=== PATIENT | male | born 1995 | race Caucasian/White ===

== ENCOUNTER → 2016-07-24 | Outpatient (CLI) | payer OTHER ==
--- NOTE | 2016-07-24 16:53 | MR ---
EXAMINATION TYPE: MR knee LT wo con DATE OF EXAM: 07/24/2016 4:31 PM COMPARISON: NONE HISTORY: Left knee and are pain with locking for approx. 1 month. Left knee subluxation per order. TECHNIQUE: Multiplanar, multisequence imaging of the left knee is performed without IV contrast. FINDINGS: MEDIAL MENISCUS: Anterior and posterior horns are intact without tear. LATERAL MENISCUS: Anterior and posterior horns are intact without tear. CRUCIATE LIGAMENTS: The anterior and posterior cruciate ligaments are intact and unremarkable. COLLATERAL LIGAMENTS: The medial collateral ligament and lateral collateral ligament complex are inta ct. Increased fluid signal surrounds proximal fibers of medial collateral ligament. EXTENSOR MECHANISM: Visualized quadriceps and patellar tendons are intact. EFFUSION: There is a large suprapatellar joint effusion. POPLITEAL CYST: No popliteal/hamlin cyst. TRICOMPARTMENT SPACES: Tricompartment joint spaces are fairly well-maintained. No significant spurrin g is seen. CARTILAGE: Tricompartmental articular cartilage is maintained. There is no significant chondromalacia patella noted. BONE MARROW SIGNAL: There is prominent heterogeneous increased T2 signal consistent osseous contusion or bone marrow edema involving the distal lateral femoral condyle and the medial patellar pole most pronounced inferiorly. Findings are consistent with osseous contusion pattern related to lateral dobson llar dislocation. The medial retinaculum is felt intact. OTHER: No additional significant abnormality is appreciated. IMPRESSION: 1. Ossific contusion or bone marrow edema involving lateral distal femoral condyle and medial patella r pole is consistent with injury related to lateral patellar dislocation with spontaneous reduction. No visualized tear in the medial retinaculum is noted. 2. Large suprapatellar joint effusion is present. 3. Mild MCL sprain injury.
== END | disposition home or self-care (01) ==
LOC: RADMRIMAIN 15:53
PROVIDERS: ATTEND Family Medicine
DX: S83.412A Sprain of medial collateral ligament of left knee, initial encounter (principal)

== ENCOUNTER → 2018-04-29 | Outpatient (CLI) | payer OTHER ==
--- NOTE | 2018-04-29 08:00 | US ---
EXAMINATION TYPE: US abdomen complete DATE OF EXAM: 04/29/2018 COMPARISON: NONE CLINICAL HISTORY: R19.7 DIARRHEA,R10.13 ABD PAIN. Limited and difficult exam due to overlying bowel g as EXAM MEASUREMENTS: Liver Length: 16.7 cm Gallbladder Wall: 0.3 cm CBD: 0.4 cm Spleen: 11.3 cm Right Kidney: 11.1 x 4.0 x 4.9 cm Left Kidney: 12.0 x 5.3 x 4.9 cm Pancreas: Obscured by bowel gas small portion of the head of the pancreas visualized appears unremar kable. Liver: Heterogeneous Gallbladder: Multiple stones visualized Evidence for sonographic Faith's sign: No CBD: wnl as visualized Spleen: wnl Right Kidney: No hydronephrosis or masses seen Left Kidney: No hydronephrosis or masses seen Upper IVC: wnl Abd Aorta: wnl as visualized IMPRESSION: 1. Cholelithiasis.
== END ==
LOC: RADUSWWP 06:56
PROVIDERS: ATTEND Family Medicine
DX: K80.20 Calculus of gallbladder without cholecystitis without obstruction (principal)
CPT/HCPCS: 76700

== ENCOUNTER 2018-06-17 10:52 | Observation (INO) | payer BC, OTHER ==
[2018-06-14 13:15] VITALS: BMI 34.3
[~2018-06-17 10:52] MED LIST: HEPARIN SODIUM,PORCINE 5,000 UNIT/ML 1 ML VIAL SQ ONE; MORPHINE SULFATE 2 MG/ML SYRINGE IV PRN; ONDANSETRON 4 MG/2 ML VIAL IVP PRN; ceFAZolin IN SWFI 2 GM/20 ML SYRINGE IVP ONE
[2018-06-17] MEDS: LACTATED RINGERS 1,000 ML IV SCH (12:12)
[2018-06-17] MEDS ORDERED: LIDOCAINE 1% 20 ML VIAL (10MG/ML) FOR IV START INTRADERMA ONE (12:12)
--- NOTE | 2018-06-17 14:01 | P.HPADDEND ---
H&P Addendum H&P Addendum Date: 06/17/18 The patient during his recent office visit also described a lipoma in the left upper mid back. This is painful at times. Some enlargement. On exam this lipoma measures 2 x 1 cm. We will proceed with excision simultaneous to the gallbladder procedure.
[2018-06-17] MEDS ORDERED: LIDOCAINE 1% INJ 10MG/ML (20 ML MDV) ONE (14:21)
[2018-06-17] MEDS ORDERED: ROCURONIUM BROMIDE 10 MG/ML 10 ML VIAL IV ONE (14:21)
[2018-06-17] MEDS ORDERED: GLYCOPYRROLATE 0.2 MG/ML 2 ML VIAL ONE (14:21)
[2018-06-17] MEDS ORDERED: SUCCINYLCHOLINE CHLORIDE 100 MG/5 ML SYR IV ONE (14:21)
[2018-06-17] MEDS ORDERED: MIDAZOLAM 2 MG/2 ML VIAL ONE (14:21)
[2018-06-17] MEDS ORDERED: fentaNYL (PF) 50 MCG/ML 2 ML AMP ONE (14:21)
[2018-06-17] MEDS ORDERED: NEOSTIGMINE 1 MG/ML 10 ML VIAL ONE (14:21)
[2018-06-17] MEDS ORDERED: PROPOFOL 10 MG/ML 20 ML VIAL IV ONE (14:21)
[2018-06-17] MEDS ORDERED: BUPIVACAIN-EPI 0.25%-1:200,000 30 ML VIAL SQ ONE (14:45)
[2018-06-17] MEDS ORDERED: LACTATED RINGERS 1,000 ML IV ONE (15:41)
[2018-06-17] MEDS ORDERED: KETOROLAC 30 MG/ML 1 ML VIAL IVP ONE (16:32)
[2018-06-17] MEDS ORDERED: HYDROmorphone 1 MG/ML 1 ML SYRINGE IVP ONE ×5 (16:42→18:44)
[2018-06-17] MEDS ORDERED: HYDROcodone/APAP 5-325MG 1 EACH TAB PO PRN (16:42)
[2018-06-17] MEDS ORDERED: NALOXONE 0.4 MG/ML 1 ML VIAL IV PRN (16:42)
--- NOTE | 2018-06-17 16:46 | P.OP ---
Date of Procedure: 06/17/18 Procedure(s) Performed: PREOPERATIVE DIAGNOSIS: Chronic cholecystitis, left back lipoma POSTOPERATIVE DIAGNOSIS: Same PROCEDURE: Laparoscopic cholecystectomy, removal left back lipoma SURGEON: Irene EBL: Minimal see anesthesia record ANESTHESIA: Gen. COMPLICATIONS: None OPERATIVE PROCEDURE: The patient was brought and placed on the operating room table in the supine position. The patient was placed under general anesthesia at that time. The patient was then placed in the right decubitus position. The left back was prepped and draped in usual sterile fashion. An incision was made horizontally overlying the palpable mass. Dissection through the subcutaneous fat took place using blunt dissection and cautery. The patient's lipoma was identified and removed at that time. This was somewhat adherent to the surrounding fatty tissues. No additional abnormalities were identified at that time. The subcutaneous tissues were closed using 3-0 Vicryl sutures and the skin using a running 4-0 Monocryl stitch. Skin glue and a dressing was applied. The patient was then placed supine. The abdomen was prepped and draped in the usual sterile fashion. A small vertical infraumbilical incision was made. The fascia was grasped with the Aminah forceps. The fascia was retracted anteriorly. The Veress needle was advanced into the peritoneal cavity. The saline drop test was normal. Insufflation took place up to 15 mmHg. A 5 mm optical trocar was advanced and the peritoneal cavity. 2 additional 5 mm trochars were placed in the right upper quadrant under direct visualization. A 12 mm trocar was advanced into the epigastric incision site. The gallbladder was significantly longer than usual. There was a large stone impacted in the neck of the gallbladder. The gallbladder was retracted superiorly and laterally. The peritoneum overlying the infundibulum was bluntly dissected. The patient's cystic duct was visualized. The junction between the cystic duct common and hepatic duct was identified. The cystic duct was then divided after placement of 3 12 mm clips on the patient's side and one on the specimen side. The cystic artery was identified and clipped as well. A small vessel was seen along the gallbladder fossa and clipped as well. The gallbladder was then removed from the liver bed using electrocautery. The gallbladder was then removed from the epigastric trocar site with an Endo Catch bag. The gallbladder fossa was irrigated with saline. There was no evidence of any bleeding or biliary drainage seen. The trochars were then removed. The fascia at the 12 millimeter site was closed using a Arnaldo- Priscila 0 Vicryl stitch. During that portion of the procedure as the Arnaldo- Priscila suture passer passed through the fascia there was noted to be significant bleeding from a vessel in the rectus. Once the suture was tied down and an additional stitch was placed there was no further bleeding seen. The skin at all 4 sites was closed using a 4-0 Monocryl stitch. Skin glue was utilized on the incision sites. At the end of this procedure the sponge and needle counts were correct. DISPOSITION: Stable to the recovery room
[2018-06-17] MEDS ORDERED: fentaNYL (PF) 50 MCG/ML 2 ML AMP IVP ONE ×2 (17:19→17:28)
[2018-06-17] MEDS ORDERED: HYDROcodone/APAP 10-325MG 1 EACH TAB PO ONE ×2 (17:44→17:57)
[2018-06-17] MEDS ORDERED: HYDROcodone/APAP 10-325MG 1 EACH TAB PO PRN (20:03)
[2018-06-17] MEDS ORDERED: ONDANSETRON 4 MG/2 ML VIAL IVP PRN (20:04)
[2018-06-17] MEDS: HYDROmorphone 1 MG/ML 1 ML SYRINGE IVP PRN (21:03)
[2018-06-18] MEDS: LACTATED RINGERS 1,000 ML IV SCH (00:25)
[2018-06-18] MEDS: KETOROLAC 30 MG/ML 1 ML VIAL IVP SCH ×2 (01:53→05:39)
[2018-06-18] MEDS: HYDROmorphone 1 MG/ML 1 ML SYRINGE IVP PRN ×2 (01:54→05:23)
[2018-06-18] MEDS ORDERED: SODIUM CHLORIDE 0.9% 1,000 ML IV SCH (05:15)
[2018-06-18 06:32] VITALS: RESP 16
--- NOTE | 2018-06-18 10:43 | P.DS ---
Providers Date of admission: 06/18/18 06:33 Expected date of discharge: 06/18/18 Attending physician: Vik Bonilla Primary care physician: Sampson Chavarria - Discharge Diagnosis(es) (1) Chronic cholecystitis Patient was kept overnight because of increased pain postoperatively. His pain has improved however. He is anxious to go home at this time. Vital signs have been stable. He is tolerating a diet currently. Labs were ordered but apparently they were not drawn area Will plan discharge today and follow-up one week. Prescription for [facility] provided. Current Visit: Yes Status: Acute Plan - Discharge Summary Discharge Rx Participant: Yes New Discharge Prescriptions: New Hydrocodone/Acetaminophen [[facility] 5-325] 1 - 2 each PO Q4HR PRN #15 tab PRN Reason: pain No Action ALPRAZolam [Xanax] 0.25 mg PO HS PRN PRN Reason: sleep Discharge Medication List ALPRAZolam [Xanax] 0.25 mg PO HS PRN 06/14/18 [History] Hydrocodone/Acetaminophen [[facility] 5-325] 1 - 2 each PO Q4HR PRN #15 tab 06/17/18 [Rx] Follow up Appointment(s)/Referral(s): Vik Bonilla MD [Medical Doctor] - 06/22/18 3:20 pm Patient Instructions/Handouts: *Surgery [facility] - ([facility]) Laparoscopic Cholecystectomy, *Surgery [facility] - (Anesthesia) Discharge Instructions Outpatient Surgery, Low Fat Diet (DC), Lipoma Removal (DC)
[2018-06-18 11:19] LABS: Basophils % (A) 0 %; Eosinophils # (A) 0.1 k/uL (0-0.7); Eosinophils % (A) 1 %; HCT 41.9 % (39.0-53.0); HGB 13.6 gm/dL (13.0-17.5); Lymphocytes # (A) 2.7 k/uL (1.0-4.8); Lymphocytes % (A) 28 %; MCH 28.5 pg (25.0-35.0); MCHC 32.3 g/dL (31.0-37.0); MCV 88.2 fL (80.0-100.0); Mean Platelet Volume 8.9; Monocytes # (A) 0.7 k/uL (0-1.0); Monocytes % (A) 7 %; Neutrophils # (A) 6.2 k/uL (1.3-7.7); Neutrophils % (A) 63 %; Platelet Count 187 k/uL (150-450); RBC 4.75 m/uL (4.30-5.90); RDW 13.5 % (11.5-15.5); WBC 9.9 k/uL (3.8-10.6)
[2018-06-18 11:23] VITALS: BP 101/63; PULSE 74; TEMP 98.9
[2018-06-18 11:42] LABS: ALT 156 U/L (21-72); AST 78 U/L (17-59); Albumin 3.7 g/dL (3.5-5.0); Alkaline Phosphatase 46 U/L (38-126); Anion Gap 5 mmol/L; Blood Urea Nitrogen 12 mg/dL (9-20); Calcium 9.3 mg/dL (8.4-10.2); Carbon Dioxide 28 mmol/L (22-30); Chloride 107 mmol/L (98-107); Glucose 87 mg/dL (74-99); Potassium 4.6 mmol/L (3.5-5.1); Sodium 140 mmol/L (137-145); Total Bilirubin 0.6 mg/dL (0.2-1.3); Total Protein 6.3 g/dL (6.3-8.2)
== END 2018-06-18 11:45 | disposition home or self-care (01) ==
LOC: OR 10:52 → 4SSUR 19:23 → OR 06-18 06:57
PROVIDERS: ADMIT Surgery; ATTEND Surgery
DX: K80.10 Calculus of gallbladder with chronic cholecystitis without obstruction (principal); D17.1 Benign lipomatous neoplasm of skin and subcutaneous tissue of trunk; F41.9 Anxiety disorder, unspecified; F17.200 Nicotine dependence, unspecified, uncomplicated; Z79.899 Other long term (current) drug therapy; Z88.0 Allergy status to penicillin; Z91.048 Other nonmedicinal substance allergy status
CPT/HCPCS: 88304; 80053; 85025; 47562; 21930; G0378; J2250; J1644; J2710; J2405; J2001; J3010; J1885; J1170 ×2; J0330; J2704; J0690

== ENCOUNTER → 2018-10-27 | Outpatient (CLI) | payer OTHER ==
--- NOTE | 2018-10-27 17:08 | MR ---
EXAMINATION TYPE: MR knee RT wo con DATE OF EXAM: 10/27/2018 COMPARISON: 07/25/2014 HISTORY: Tear of meniscus, current injury TECHNIQUE: Multiplanar, multisequence imaging of the right knee is performed without IV contrast. FINDINGS: MEDIAL MENISCUS: Anterior and posterior horns are intact without tear. LATERAL MENISCUS: Anterior and posterior horns are intact without tear. CRUCIATE LIGAMENTS: The anterior and posterior cruciate ligaments are intact and unremarkable. COLLATERAL LIGAMENTS: The medial collateral ligament and lateral collateral ligament complex are inta ct and unremarkable. EXTENSOR MECHANISM: Visualized quadriceps and patellar tendons are intact. EFFUSION: Minimal suprapatellar effusion is present. POPLITEAL CYST: No popliteal/hamlin cyst. TRICOMPARTMENT SPACES: Preserved CARTILAGE: Normal thickness within the medial lateral compartments. The changes within the posterior patellar articular cartilage appears stable from the comparison study. BONE MARROW SIGNAL: Lateral femoral edema is present. There is edema within the medial and inferior p atella. Correlate for recent dislocation. OTHER: No additional significant abnormality is appreciated. IMPRESSION: 1. Minimal joint effusion in an otherwise normal MRI right knee. 2. Changes suggestive for recent patellar dislocation. 3. Changes suggestive for midpatellar articular cartilage fissures are present from prior exam.
== END | disposition home or self-care (01) ==
LOC: RADMRIMAIN 13:49
PROVIDERS: ATTEND Family Medicine
DX: M25.461 Effusion, right knee (principal)

== ENCOUNTER 2020-01-03 21:15 | Emergency (ER) | payer OTHER ==
[2020-01-03 21:34] VITALS: TEMP 98.2
--- NOTE | 2020-01-03 22:47 | XR ---
EXAMINATION TYPE: XR chest 2V DATE OF EXAM: 01/03/2020 COMPARISON: None HISTORY: Chest pain. Mold exposure. TECHNIQUE: FINDINGS: Heart and mediastinum are normal. Lungs are clear. Diaphragm is normal. Bony thorax appears normal. The pulmonary vascularity is normal. IMPRESSION: Normal chest.
[2020-01-03 22:59] LABS: ALT 53 U/L (4-49); AST 51 U/L (17-59); African American GFR (CKD) >90 (>60 ml/min/1.73 sqM); Albumin 4.5 g/dL (3.5-5.0); Alkaline Phosphatase 59 U/L (38-126); Anion Gap 9 mmol/L; Blood Urea Nitrogen 18 mg/dL (9-20); Calcium 9.5 mg/dL (8.4-10.2); Carbon Dioxide 22 mmol/L (22-30); Chloride 107 mmol/L (98-107); Glucose 85 mg/dL (74-99); Non-African American GFR(CKD) >90 (>60 ml/min/1.73 sqM); Potassium 3.7 mmol/L (3.5-5.1); Sodium 138 mmol/L (137-145); Total Bilirubin 0.7 mg/dL (0.2-1.3); Total Protein 7.1 g/dL (6.3-8.2)
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
[2020-01-03 23:39] LABS: Basophils % (A) 1 %; Eosinophils # (A) 0.1 k/uL (0-0.7); Eosinophils % (A) 1 %; HCT 41.5 % (39.0-53.0); HGB 14.1 gm/dL (13.0-17.5); Lymphocytes # (A) 2.1 k/uL (1.0-4.8); Lymphocytes % (A) 25 %; MCH 29.6 pg (25.0-35.0); MCHC 34.1 g/dL (31.0-37.0); Mean Platelet Volume 10.2; Monocytes # (A) 0.7 k/uL (0-1.0); Monocytes % (A) 8 %; Neutrophils # (A) 5.1 k/uL (1.3-7.7); Neutrophils % (A) 63 %; Platelet Count 159 k/uL (150-450); RBC 4.77 m/uL (4.30-5.90); RDW 12.8 % (11.5-15.5); WBC 8.2 k/uL (3.8-10.6)
[2020-01-03 23:53] VITALS: BP 151/98; PULSE 79; RESP 18
== END 2020-01-03 23:54 | disposition home or self-care (01) ==
LOC: EC 21:15
DX: L29.9 Pruritus, unspecified (principal); F41.9 Anxiety disorder, unspecified; F17.200 Nicotine dependence, unspecified, uncomplicated; Z79.899 Other long term (current) drug therapy; Z91.041 Radiographic dye allergy status; Z77.120 Contact with and (suspected) exposure to mold (toxic)
CPT/HCPCS: 36415; 71046; 80053; 85025; 99283

== ENCOUNTER 2020-01-11 13:27 | Inpatient (IN) | payer MEDICAID, OTHER ==
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
[2020-01-11 14:16] LABS: Cocaine Screen,Urine Not Detected (NotDetected); Phencyclidine Screen,Urine Not Detected (NotDetected); Urn Cannabinoid Scrn Not Detected (NotDetected)
[2020-01-11 14:17] LABS: Amphetamine Screen,Urine Detected (NotDetected); Barbiturate Screen,Urine Not Detected (NotDetected); Benzodiazepines Screen,Urine Detected (NotDetected); Methadone Screen, Urine Not Detected (NotDetected); Opiate Screen,Urine Detected (NotDetected); Oxycodone Screen, Urine Not Detected (NotDetected); Tricyclic Antidepressant,Urine Not Detected (NotDetected)
[2020-01-11] MEDS ORDERED: ZIPRASIDONE 20 MG VIAL IM PRN (18:32)
[2020-01-11] MEDS ORDERED: MAG HYDROX/AL HYDROX/SIMETH 30 ML CUP PO PRN (18:32)
[2020-01-11] MEDS ORDERED: MAGNESIUM HYDROXIDE 2,400 MG/10 ML CUP PO PRN (18:32)
[2020-01-11] MEDS ORDERED: QUEtiapine 100 MG TAB PO PRN (18:38)
[2020-01-11] MEDS: NICOTINE 14MG/24HR PATCH TRANSDERM SCH (18:53)
[2020-01-12 08:32] LABS: Basophils # (A) 0.1 k/uL (0-0.2); Basophils % (A) 1 %; Eosinophils # (A) 0.1 k/uL (0-0.7); Eosinophils % (A) 2 %; HCT 47.1 % (39.0-53.0); HGB 15.2 gm/dL (13.0-17.5); Lymphocytes % (A) 26 %; MCH 28.2 pg (25.0-35.0); MCHC 32.3 g/dL (31.0-37.0); MCV 87.4 fL (80.0-100.0); Mean Platelet Volume 9.7; Monocytes # (A) 0.5 k/uL (0-1.0); Monocytes % (A) 7 %; Neutrophils # (A) 4.9 k/uL (1.3-7.7); Neutrophils % (A) 64 %; Platelet Count 178 k/uL (150-450); RDW 13.2 % (11.5-15.5); WBC 7.7 k/uL (3.8-10.6)
[2020-01-12 09:02] LABS: ALT 58 U/L (4-49); AST 40 U/L (17-59); African American GFR (CKD) >90 (>60 ml/min/1.73 sqM); Albumin 4.4 g/dL (3.5-5.0); Alkaline Phosphatase 48 U/L (38-126); Anion Gap 8 mmol/L; Blood Urea Nitrogen 12 mg/dL (9-20); Calcium 9.5 mg/dL (8.4-10.2); Carbon Dioxide 28 mmol/L (22-30); Chloride 104 mmol/L (98-107); Cholesterol 113 mg/dL (<200); Glucose 91 mg/dL (74-99); HDL Cholesterol 36 mg/dL (40-60); LDL Cholesterol,Calculated 62 mg/dL (0-99); Non-African American GFR(CKD) >90 (>60 ml/min/1.73 sqM); Potassium 4.5 mmol/L (3.5-5.1); Sodium 140 mmol/L (137-145); Total Bilirubin 0.7 mg/dL (0.2-1.3); Total Protein 7.3 g/dL (6.3-8.2); Triglycerides 75 mg/dL (<150)
[2020-01-12] MEDS: ACETAMINOPHEN TAB 325 MG TAB PO PRN (09:39)
[2020-01-12] MEDS: NICOTINE 14MG/24HR PATCH TRANSDERM SCH (09:39)
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
--- NOTE | 2020-01-12 13:25 | P.HP ---
Psychiatric H&P - . H&P Date: 01/12/20 History & Physical: IDENTIFYING DATA: He is a 24-year-old single male admitted to the psychiatric unit involuntarily. His aunt completed a petition that read "walking around nude, complaining about bugs and has access to guns. He has threatened me and himself." HISTORY OF PRESENT ILLNESS: I reviewed the medical record and interviewed the patient. I also left a message to speak with his aunt. He denied problems or concerns. He minimized allegations in the petition. He denied that he was walking around the house nude or complaining about bugs. He admitted to owning a shotgun and a rifle. He denied that he had threatened his aunt or threatened to harm himself. Instead, he complained about his aunt. He alleged that she has been threatening and harassing him. He perseverated about having been exposed to mold. He believes that the multiple small scabs on his arms or spots caused by black mold. He also had several bruises on his arms that he likewise attributed to the black mold. He told the EPS daughters that the bruises appear spontaneously that he has seen his close move on her own as they were "starting to sway" on her own. He did not perseverate about bugs or feeling as though he had bugs in his skin during our interview. He has a history of methamphetamine use and his urine drug screen was positive for opiates, amphetamines and methamphetamine. He admitted to "occasional" use of methamphetamine. He was guarded and evasive about amount and frequency frequently changed the story from "once in a while" to "maybe every other day or so." He denied IV use but he smokes or insufflated the methamphetamine. He has been using methamphetamine about 3 months since he was laid off due to the COVID 19 pandemic. A "friend" recommended the methamphetamine to help with his "pain" and "energy". He alleged that his aunt gives him her Vicodin stay use. He denied feeling depressed or having thoughts of or suicide. He denied experiencing persistent uncontrolled anxiety. He denied currently experiencing auditory, visual or olfactory hallucinations. He denied experiencing somatic hallucinations such as feeling as though bugs were crawling on his skin. He denied experiencing ideas reference, thought insertion, thought broadcasting etc. He denied use of other drugs such as heroin, cocaine, crack cocaine, LSD or marijuana. He alleges he drinks "occasionally". PAST PSYCHIATRIC HISTORY: He denied prior psychiatric hospitalization. He alleged that he met with a counselor when he was "for years old". PAST MEDICAL HISTORY: He denied a history of major medical problems. ALLERGIES: I estimated contrast media, penicillin SUBSTANCE USE HISTORY: Admitted to use of marijuana "when I was younger". His use of methamphetamine is outlined above. He denied history of IV drug use. He has never attended a substance abuse treatment program. FAMILY PSYCHIATRIC/SUBSTANCE USE HISTORY: He is unaware of family history of mental illness LEGAL HISTORY: He denied history of legal problems. SOCIAL HISTORY: His born and raised in [place] by his father and grandparents. He alleged that his mother was "in and out." He is an only child. He left school in the 12th grade; "I went through a difficult breakup." He did not obtain his GED. He lives with his aunt and uncle. He works intermittently or construction subcontractor. He is single and has no children. MENTAL STATUS EXAM: He presented as a tall casually groomed 24-year-old male who was pleasant on approach. He made eye contact and attended the interview. He had small sores on his arms with some bruising but no promine nt physical abnormalities. He had a blunted but bright facial expression. He was alert and oriented to person, place and time. He was restless but had no abnormal involuntary movements. His speech was spontaneous, rapid, digressive and perseverative. His affect was elevated but appropriate. He denied suicidal ideation or wishes. He denied homicidal ideation. He denied feeling hopeless, helpless or worthless. He ruminated about the circumstances that led to this hospitalization but did not express ideas reference, paranoid ideation or delusional thoughts. He denied hallucinations and didn't appear to be responding to internal stimuli. Global impression of intellect is average. He has limited awareness or understanding of his illness or need for treatment. STRENGTHS: Supportive family, good physical health, history of stable employment WEAKNESSES: Methamphetamine use, lack of high school education IMPRESSION: Amphetamine use psychotic disorder, methamphetamine use disorder severe, rule out unspecified psychotic disorder PRINCIPLE DIAGNOSIS: Admitted to the psychiatric unit. States precautions. Completed the clinical certificate and proceeded with involuntary h ospitalization. Obtain collateral information from family. Ativan 1 mg by mouth 3 times a day when necessary for anxiety or agitation and Geodon 20 mg IM twice a day when necessary for agitation acute psychosis. If the presenting psychiatric interviews not resolved with abstinence from methamphetamine, then consider a trial of a antipsychotic. Encourage participation in therapeutic groups and activities. Evaluate clinical status response to treatment daily basis. RECOMMENDATION: [] Allergies Allergy/AdvReac Type Severity Reaction Status Date / Time Iodinated Contrast Media Allergy Rash/Hives Verified 01/11/20 14:11 [Iodinated Contrast- Oral and IV Dye] Penicillins Allergy Rash/Hives Verified 01/11/20 14:11 Vital Signs Temp 98.1 F 01/12/20 06:36 Pulse 87 01/12/20 06:36 Resp 14 01/12/20 06:36 BP 128/69 01/12/20 06:36 Pulse Ox 100 01/11/20 18:07 Intake & Output 01/11/20 01/12/20 01/12/20 18:59 06:59 18:59 Weight 108.862 kg Laboratory Last Values WBC 7.7 k/uL (3.8-10.6) 01/12/20 08:02 RBC 5.40 m/uL (4.30-5.90) 01/12/20 08:02 Hgb 15.2 gm/dL (13.0-17.5) 01/12/20 08:02 Hct 47.1 % (39.0-53.0) 01/12/20 08:02 MCV 87.4 fL (80.0-100.0) 01/12/20 08:02 MCH 28.2 pg (25.0-35.0) 01/12/20 08:02 MCHC 32.3 g/dL (31.0-37.0) 01/12/20 08:02 RDW 13.2 % (11.5-15.5) 01/12/20 08:02 Plt Count 178 k/uL (150-450) 01/12/20 08:02 Neutrophils % 64 % 01/12/20 08:02 Lymphocytes % 26 % 01/12/20 08:02 Monocytes % 7 % 01/12/20 08:02 Eosinophils % 2 % 01/12/20 08:02 Basophils % 1 % 01/12/20 08:02 Neutrophils # 4.9 k/uL (1.3-7.7) 01/12/20 08:02 Lymphocytes # 2.0 k/uL (1.0-4.8) 01/12/20 08:02 Monocytes # 0.5 k/uL (0-1.0) 01/12/20 08:02 Eosinophils # 0.1 k/uL (0-0.7) 01/12/20 08:02 Basophils # 0.1 k/uL (0-0.2) 01/12/20 08:02 Sodium 140 mmol/L (137-145) 01/12/20 08:02 Potassium 4.5 mmol/L (3.5-5.1) 01/12/20 08:02 Chloride 104 mmol/L (98-107) 01/12/20 08:02 Carbon Dioxide 28 mmol/L (22-30) 01/12/20 08:02 Anion Gap 8 mmol/L 01/12/20 08:02 BUN 12 mg/dL (9-20) 01/12/20 08:02 Creatinine 0.71 mg/dL (0.66-1.25) 01/12/20 08:02 Est GFR (CKD-EPI)AfAm >90 (>60 ml/min/1.73 sqM) 01/12/20 08:02 Est GFR (CKD-EPI)NonAf >90 (>60 ml/min/1.73 sqM) 01/12/20 08:02 Glucose 91 mg/dL (74-99) 01/12/20 08:02 Calcium 9.5 mg/dL (8.4-10.2) 01/12/20 08:02 Total Bilirubin 0.7 mg/dL (0.2-1.3) 01/12/20 08:02 AST 40 U/L (17-59) 01/12/20 08:02 ALT 58 U/L (4-49) H 01/12/20 08:02 Alkaline Phosphatase 48 U/L (38-126) 01/12/20 08:02 Total Protein 7.3 g/dL (6.3-8.2) 01/12/20 08:02 Albumin 4.4 g/dL (3.5-5.0) 01/12/20 08:02 Triglycerides 75 mg/dL (<150) 01/12/20 08:02 Cholesterol 113 mg/dL (<200) 01/12/20 08:02 LDL Cholesterol, Calc 62 mg/dL (0-99) 01/12/20 08:02 HDL Cholesterol 36 mg/dL (40-60) L 01/12/20 08:02 TSH 0.246 mIU/L (0.465-4.680) L 01/12/20 08:02 Urine Opiates Screen Detected (NotDetected) H 01/11/20 13:30 Ur Oxycodone Screen Not Detected (NotDetected) 01/11/20 13:30 Urine Methadone Screen Not Detected (NotDetected) 01/11/20 13:30 Ur Propoxyphene Screen Not Detected (NotDetected) 01/11/20 13:30 Ur Barbiturates Screen Not Detected (NotDetected) 01/11/20 13:30 U Tricyclic Antidepress Not Detected (NotDetected) 01/11/20 13:30 Ur Phencyclidine Scrn Not Detected (NotDetected) 01/11/20 13:30 Ur Amphetamines Screen Detected (NotDetected) H 01/11/20 13:30 U Methamphetamines Scrn Not Detected (NotDetected) 01/11/20 13:30 U Benzodiazepines Scrn Detected (NotDetected) H 01/11/20 13:30 Urine Cocaine Screen Not Detected (NotDetected) 01/11/20 13:30 U Marijuana (THC) Screen Not Detected (NotDetected) 01/11/20 13:30 01/12/20 13:08
[2020-01-12 17:02] LABS: Hemoglobin A1C 5.4 % (4.0-6.0)
[2020-01-13 06:41] VITALS: RESP 16
[2020-01-13] MEDS: ACETAMINOPHEN TAB 325 MG TAB PO PRN ×2 (08:56→20:10)
[2020-01-13] MEDS: NICOTINE 14MG/24HR PATCH TRANSDERM SCH (08:56)
--- NOTE | 2020-01-13 11:23 | P.PN ---
Progress Note - Text Interval history: The patient's found in the hallway follows me to an interview room. The patient was admitted for methamphetamine-induced psychosis. His drug screen was positive for opiates, amphetamines and benzodiazepines. He admits he was using methamphetamine regularly for an extended period of time. He states that he has no suicidal thoughts he denies having any other psychiatric symptoms. Staff reported he slept 6 hours he indicates appetite stable he reports she's trying to attend groups. He describes goals of trying to work with his family member didn't apartment and establish more independence. He is on no scheduled medication. Mental status exam: The patient's a tall male appearing his stated age his hair shave short. Eye contact is appropriate speech is fluent spontaneous it appears pressured he speaks very quickly. He demonstrates no tangential thinking loose associations or flight of ideas. He is reporting no auditory or visual hallucinations he does not appear to be responding to hallucinations currently. He is endorsing no specific delusions. Affect is expansive. He reports no suicidal or homicidal ideation intent or plan. He demonstrates no verbal or physical aggressiveness or any repetitive involuntary movements. He was easily directed during the session. Plan: We will continue to evaluate him, his symptoms are thought to be induced by the methamphetamine and other substances. We will monitor for safety and encourage full participation in the milieu. Vital signs reviewed. Other lab results reviewed. He expects his mother will visit this evening.
[2020-01-13] MEDS: LORazepam 1 MG TAB PO PRN (20:09)
[2020-01-14] MEDS: ACETAMINOPHEN TAB 325 MG TAB PO PRN (08:37)
[2020-01-14] MEDS: NICOTINE 14MG/24HR PATCH TRANSDERM SCH (08:37)
[2020-01-14] MEDS: LORazepam 1 MG TAB PO PRN (08:37)
--- NOTE | 2020-01-14 11:06 | P.PN ---
Progress Note - Text Interval history: The patient's found in the [facility] socializing with peers, he indicates his mood is good. He slept 7 hours last evening appetite is stable. He reports having a good visit with his mother last evening. He expects his father will visit this evening. He states that his presenting symptoms were drug-induced and those have now resolved. He has no questions or concerns. He states that he is simply able to stop using substances and he will no longer associate with people that are using. Mental status exam: The patient is alert he is pleasant cooperative easily directed. Eye contact is good hygiene grooming are good. Speech is fluent spontaneous nonpressured. He reports no hopelessness thinking no suicidal ideation intent or plan. He reports no auditory or visual hallucinations or any specific delusions there is no observed evidence psychosis. He demonstrates no tangential thinking loose associations or flight of ideas he does not appear hypomanic or manic. Insight and judgment are improving. Affect is appropriately expressive. Plan: The patient appears to be clinically stabilizing. We will monitor him for safety and encourage full participation in the milieu. Vital signs reviewed.
[2020-01-15 07:01] VITALS: BP 124/76; PULSE 77; TEMP 97.8
[2020-01-15] MEDS: ACETAMINOPHEN TAB 325 MG TAB PO PRN (08:21)
[2020-01-15] MEDS: NICOTINE 14MG/24HR PATCH TRANSDERM SCH (08:21)
--- NOTE | 2020-01-15 13:49 | P.DS ---
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 His aunt completed a petition that read "walking around nude, complaining about bugs and has access to guns. He has threatened me and himself." He denied problems or concerns. He minimized allegations in the petition. He denied that he was walking around the house nude or complaining about bugs. He admitted to owning a shotgun and a rifle. He denied that he had threatened his aunt or threatened to harm himself. Instead, he complained about his aunt. He alleged that she has been threatening and harassing him. He perseverated about having been exposed to mold. He believes that the multiple small scabs on his arms or spots caused by black mold. He also had several bruises on his arms that he likewise attributed to the black mold. He told the EPS daughters that the bruises appear spontaneously that he has seen his close move on her own as they were "starting to sway" on her own. He did not perseverate about bugs or feeling as though he had bugs in his skin during our interview. He has a history of methamphetamine use and his urine drug screen was positive for opiates, amphetamines and methamphetamine. He admitted to "occasional" use of methamphetamine. He was guarded and evasive about amount and frequency frequently changed the story from "once in a while" to "maybe every other day or so." He denied IV use but he smokes or insufflated the methamphetamine. He has been using methamphetamine about 3 months since he was laid off due to the COVID 19 pandemic. A "friend" recommended the methamphetamine to help with his "pain" and "energy". He alleged that his aunt gives him her Vicodin stay use. He denied feeling depressed or having thoughts of or suicide. He denied experiencing persistent uncontrolled anxiety. He denied currently experiencing auditory, visual or olfactory hallucinations. He denied experiencing somatic hallucinations such as feeling as though bugs were crawling on his skin. He denied experiencing ideas reference, thought insertion, thought broadcasting etc. He denied use of other drugs such as heroin, cocaine, crack cocaine, LSD or marijuana. He alleges he drinks "occasionally". He denied prior psychiatric hospitalization. HOSPITAL COURSE: We admitted him to the psychiatric unit involuntarily under the care of this bond underwriter. We provided a comprehensive biopsychosocial assessment. The sediment remediation consultant hospitalist completed initial physical exam and medical history and only diagnosed tobacco use recommending a nicotine patch. We treated the methamphetamine intoxication and withdrawal conservatively with Seroquel 100 mg at bedtime when necessary for sleep, Ativan 1 mg by mouth 3 times a day when necessary for agitation and Geodon 20 mg IM twice a day when necessary for agitation or aggression. He requested little Ativan and required no when necessary Geodon. He declined to use the Seroquel at night. He posed no management problems until episodes of behavioral dyscontrol. His restlessness, pressured speech and insomnia resolved with abstinence from methamphetamine. There was no indication for the prescription of scheduled dosing antipsychotic. At the time of discharge she presented as a tall AND groomed 24-year-old male who was pleasant on approach. He made eye contact and attended to interview. He had no distinguishing features or prominent physical abnormalities. He had a bright facial expression. He is alert and oriented to person, place and time. He was not restless, agitated or retarded. His speech was spontaneous with normal rate and volume. His affect was blunted but stable and appropriate. He denied suicidal ideation and wishes. He denied homicidal ideation. He denied feeling hopeless, helpless or worthless. No express ideas reference, paranoid ideation or delusions. His thinking was concrete but his associations were coherent and logical. He denied hallucinations didn't appear to be responding to internal stimuli. DISPOSITION: He is discharged with, no psychotropic medications. He has an appointment with [facility] on 01/22/2020 at 12 PM for outpatient individual and substance abuse treatment. Patient Condition at Discharge: Stable Plan - Discharge Summary New Discharge Prescriptions: New Nicotine 14Mg/24Hr Patch [Habitrol] 1 patch TRANSDERM DAILY patch Continue Loratadine [Claritin] 10 mg PO DAILY PRN PRN Reason: Allergy Symptoms Discontinued Escitalopram Oxalate [Lexapro] 10 mg PO HS Cetirizine HCl [Zyrtec] 10 mg PO DAILY PRN PRN Reason: Allergy Symptoms No Action Cephalexin [Keflex] 500 mg PO Q6H Discharge Medication List Cephalexin [Keflex] 500 mg PO Q6H 01/03/20 [History] Loratadine [Claritin] 10 mg PO DAILY PRN 01/03/20 [History] Nicotine 14Mg/24Hr Patch [Habitrol] 1 patch TRANSDERM DAILY patch 01/15/20 [Rx] Follow up Appointment(s)/Referral(s): [facility] [Outside] - 01/22/20 12:00 pm (01/22/20 at 12 pm with Forest Calhoun) Sampson Chavarria MD [Primary Care Provider] - 1-2 days Activity/Diet/Wound Care/Special Instructions: Activity and diet as tolerated. Avoid the use of street drugs and alcohol. Take all medications as prescribed. When you are in need of refills on your medications please contact your medical provider and/or outpatient psychiatrist to have this done. Please go to scheduled outpatient appointment for aftercare treatment. If symptoms return or become worse, call the crisis line at and/or go to the nearest emergency room for evaluation Discharge Disposition: HOME SELF-CARE
== END 2020-01-15 15:30 | disposition home or self-care (01) | DRG 897 ==
LOC: EC 13:27 → 3MHU 17:38
PROVIDERS: ADMIT Psychiatry & Neurology Psychiatry; ATTEND Psychiatry & Neurology Psychiatry
DX: F15.151 Other stimulant abuse with stimulant-induced psychotic disorder with hallucinations (principal); F11.90 Opioid use, unspecified, uncomplicated; F14.10 Cocaine abuse, uncomplicated; F41.9 Anxiety disorder, unspecified; G47.00 Insomnia, unspecified; D17.9 Benign lipomatous neoplasm, unspecified; I83.90 Asymptomatic varicose veins of unspecified lower extremity; K21.9 Gastro-esophageal reflux disease without esophagitis; R10.9 Unspecified abdominal pain; F17.210 Nicotine dependence, cigarettes, uncomplicated; Z79.899 Other long term (current) drug therapy; Z90.49 Acquired absence of other specified parts of digestive tract; Z88.0 Allergy status to penicillin; Z91.041 Radiographic dye allergy status
CPT/HCPCS: 80053; 80061; 80306; 82075; 83036; 84443; 85025; 99284

== ENCOUNTER → 2021-03-06 | Outpatient (CLI) | payer OTHER ==
[2021-03-07 00:19] LABS: Basophils # (A) 0.05 X 10*3/uL (0.00-0.10); Basophils % (A) 0.7 %; Eosinophils % (A) 1.4 %; HCT 43.8 % (39.6-50.0); HGB 14.5 g/dL (13.0-17.0); Lymphocytes # (A) 3.14 X 10*3/uL (0.90-5.00); Lymphocytes % (A) 42.6 %; MCH 29.7 pg (27.0-32.0); MCHC 33.1 g/dL (32.0-37.0); MCV 89.6 fL (80.0-97.0); Mean Platelet Volume 13.2 fL (9.5-12.2); Monocytes % (A) 8.1 %; Neutrophils # (A) 3.46 X 10*3/uL (1.80-7.70); Neutrophils % (A) 46.9 %; Platelet Count 180 X 10*3/uL (140-440); RBC 4.89 X 10*6/uL (4.40-5.60); RDW 12.9 % (11.5-14.5); WBC 7.37 X 10*3/uL (4.50-10.00)
[2021-03-07 01:18] LABS: African American GFR (CKD) 135.2 (60.0-200.0); Albumin 4.5 g/dL (3.80-4.90); Albumin/Globulin Ratio 1.88 (1.60-3.17); Anion Gap 6.7 mmol/L (4.00-12.00); BUN/Creat Ratio 13.33 Ratio (12.00-20.00); Calcium 9.6 mg/dL (8.7-10.3); Carbon Dioxide 28.3 mmol/L (21.6-31.8); Globulin 2.4 g/dL (1.6-3.3); Non-African American GFR(CKD) 116.6 (60.0-200.0); Potassium 4.8 mmol/L (3.5-5.5); Total Bilirubin 0.2 mg/dL (0.3-1.2); Total Protein 6.9 g/dL (6.2-8.2)
[2021-03-07 01:33] LABS: Hepatitis A Antibody IgM Non-Reactive (Non-Reactive); Hepatitis B Core IgM Non-Reactive (Non-Reactive); Hepatitis B Surface Antigen Non-Reactive (Non-Reactive); Hepatitis C IgG Antibody Non-Reactive (Non-Reactive)
== END | disposition home or self-care (01) ==
LOC: LABWHC1 15:58
PROVIDERS: ATTEND Internal Medicine
DX: R53.82 Chronic fatigue, unspecified (principal); R19.4 Change in bowel habit
CPT/HCPCS: 36415; 80053; 80074; 85025

== ENCOUNTER → 2022-09-29 | Outpatient (CLI) | payer OTHER ==
--- NOTE | 2022-09-30 08:10 | MR ---
EXAMINATION TYPE: MR knee LT wo con DATE OF EXAM: 09/29/2022 COMPARISON: Prior MRI left knee July 24, 2016 HISTORY: Slip/fall injury with pain and effusion. TECHNIQUE: Multiplanar, multisequence images of the knee is performed without IV contrast. FINDINGS: MEDIAL MENISCUS: Anterior and posterior horns are intact. LATERAL MENISCUS: There is a new horizontal and vertical signal posterior horn consistent with kohli l image 27. . CRUCIATE LIGAMENTS: The anterior and posterior cruciate ligaments are intact and unremarkable. COLLATERAL LIGAMENTS: The medial collateral ligament and lateral collateral ligament complex are inta ct. There is some increased signal and thickening of the proximal LCL and biceps tendon. EXTENSOR MECHANISM: Visualized quadriceps and patellar tendons are intact. Some increased fluid signa l in superolateral aspect Hoffa's fat pad on current study. EFFUSION: Moderate to large size suprapatellar joint effusion is redemonstrated. POPLITEAL CYST: No popliteal/hamlin cyst. TRICOMPARTMENT SPACES: Tricompartment joint spaces are preserved. No significant spurring. CARTILAGE: Tricompartmental articular cartilage is maintained. BONE MARROW SIGNAL: Heterogeneous diminished T1 and increased T2 signal involving the lateral aspect of the distal lateral femoral condyle in the medial aspect of the patella similar in appearance to pr ior study. There is some increased signal and partial tearing of the medial patellofemoral ligament n ear the patellar articulation. OTHER: No additional significant abnormality is appreciated. IMPRESSION: 1. Osseous contusion injury consistent with transient lateral patellar dislocation is present similar to prior MRI. Abnormal bone marrow edema is less prominent versus prior MRI. There is some partial t earing of the medial patellofemoral ligament on current study. Underlying trochlear dysplasia should be considered. 2. Moderate to large-sized suprapatellar joint effusion redemonstrated similar to prior. 3. Suspected new tearing of the posterior horn of the lateral meniscus. 4. Possible Patellar tendon-lateral femoral condyle friction syndrome. Correlate clinically.
== END | disposition home or self-care (01) ==
LOC: RADMRIMAIN 15:41
PROVIDERS: ATTEND Nurse Practitioner Family
DX: S80.02XA Contusion of left knee, initial encounter (principal); S83.282A Other tear of lateral meniscus, current injury, left knee, initial encounter; M22.2X1 Patellofemoral disorders, right knee; M25.462 Effusion, left knee